=== PATIENT | female | born 1990 | race Two or more races ===

== ENCOUNTER 2020-03-29 12:08 | Emergency (ER) | payer SELFPAY ==
[2020-03-29] MEDS ORDERED: KETOROLAC TROMETHAMINE 60 MG/2 ML SDV IM ONE (12:28)
--- NOTE | 2020-03-29 12:31 | ER Document Report ---
ED General - General Chief Complaint: Leg Pain Stated Complaint: RASH,LOW BACK AND RIGHT LEG PAIN Time Seen by Provider: 03/29/20 12:27 Primary Care Provider: [facility],KATHY [NO LOCAL MD] - Follow up as needed RUSS FAYE JR, DO [ACTIVE PROVISIONAL STAFF] - Follow up as needed TRAVEL OUTSIDE OF THE [place] IN LAST 30 DAYS: No - HPI Notes: 29-year-old female presents to ED for evaluation of right back pain with rash intermittently for the last 3 years. Notes that she had rash evaluated yesterday and was told she has shingles. Patient given valtrex and keflex. States she was working out doing cardio this morning when she injured her low back on the same side. Patient reports she has pain radiating from the low back down into her leg. Denies paresthesias. Notes that she is not experiencing loss of control or bowel or bladder function. Patient denies fever, chills, nausea, vomiting, chest pain, shortness of breath, abdominal pain, gait disturbance, saddle anesthesia, bowel/bladder dysfunction, paresthesias or weakness. - Related Data Allergies/Adverse Reactions: amoxicillin [Amoxicillin] Allergy (Severe, Verified 11/03/15 09:56) Hives,sob Home Medications: Valtrex, Keflex Past Medical History - Social History Smoking Status: Never Smoker Frequency of alcohol use: None Drug Abuse: None Family History: Reviewed & Not Pertinent - Past Medical History Cardiac Medical History: Denies: Hx Pulmonary Embolism Pulmonary Medical History: Reports: Hx Asthma - as child-no current meds Denies: Hx Sleep Apnea, Hx Tuberculosis Musculoskeletal Medical History: Denies Hx Fibromyalgia Traumatic Medical History: Denies: Hx Fractures Infectious Medical History: Denies: Hx HIV Past Surgical History: Reports: Hx Section, Hx Cholecystectomy, Hx Orthopedic Surgery - herniated disc - Immunizations Hx Diphtheria, Pertussis, Tetanus Vaccination: Yes Review of Systems - Review of Systems Notes: Constitutional: Negative for fever. HENT: Negative for sore throat. Eyes: Negative for visual changes. Cardiovascular: Negative for chest pain. Respiratory: Negative for shortness of breath. Gastrointestinal: Negative for abdominal pain, vomiting or diarrhea. Genitourinary: Negative for dysuria. Musculoskeletal: + for back pain. Skin: + for rash. Neurological: Negative for headaches, weakness or numbness. 10 point ROS negative except as marked above and in HPI. Physical Exam - Vital signs Vitals: Temp Pulse Resp BP Pulse Ox 98.4 F 68 20 106/64 98 03/29/20 12:21 03/29/20 12:21 03/29/20 12:21 03/29/20 12:21 03/29/20 12:21 General: No acute distress. Alert and oriented x3. Skin: Intact without any jaundice, pallor, or erythema. Warm and dry. Vesicular rash to dermatomal distribution of the right lumbosacral region. Heart: Regular rate and rhythm. S1,S2. No murmurs, rubs, or gallops. Lungs: Clear to ausculation bilaterally. No wheezes, rhonchi, rales. Equal chest expansion. No retractions. Abdomen: Soft, nontender to palpation, nondistended. Positive bowel sounds in all 4 quadrants. No masses. No CVA tenderness bilaterally. Cervical spine/Thoracic spine/Lumbosacral spine: No tendeness over spinous processes. Right lumbosacral paraspinous muscular tenderness. No edema, erythema, warmth, crepitance, step-off or deformity. Full range of motion with pain. Extremities: Strength 5+ in bilateral upper and lower extremities with pain to right leg. Deep tendon reflexes are 2+ bilaterally. Tactile sensation is intact. Brisk capillary refill. Radial and pedal pulses 2+ bilaterally. Positive straight leg raise to lower extremity bilaterally. Gait steady but painful. No foot drop bilaterally. Neuro: GCS 15. Moving all extremities without discomfort. Psych: Mood and affect appropriate. Course - Re-evaluation Re-evalutation: 03/29/20 20:32 29-year-old female presents to ED for evaluation of back pain and rash. Is present in a dermatomal distribution to the lumbar region. This is concerning for shingles. Patient was seen and evaluated for this yesterday and ready placed on Keflex as well as Valtrex. I told her that this is appropriate treatment and she should continue it. Patient was also evaluated with urine which is notable for infection. I believe that the Keflex will cover this appropriately and have told her to continue taking the Keflex medication. Patient did not have any symptoms concerning for cauda equina syndrome or abscess. Lumbar x-rays were obtained which are notable for degenerative disk with spinal stenosis. Patient may end up having degree of disc herniation in the lumbar spine however I am unable to clearly identify this plan on x-ray. I did discuss this with her. Pain is most likely muscular in nature. Patient will be treated symptomatically with Pain management and NSAIDs. Patient was advised to avoid driving, operating heavy machinery, or drinking alcohol when taking narotic pain medication and/or muscle relaxers. Advised no heavy lifting or twi sting. Patient is advised to alternate ice and heat to the affected area 20 minutes on and 20 minutes off throughout the day. Patient is advised to follow up with their primary doctor. Patient understands that they may need to follow up with an orthopedist and may need an MRI for further evaluation. Patient is advised to return if any worsening of symptoms. Patient understands indications to return to the ER. Patient is agreeable with this plan. - Vital Signs Vital signs: Temp Pulse Resp BP Pulse Ox 98.4 F 70 16 107/66 100 03/29/20 14:59 03/29/20 14:59 03/29/20 14:59 03/29/20 14:59 03/29/20 14:59 - Laboratory Results Laboratory Results Interpreted: 03/29/20 12:38 Urine Blood SMALL H Ur Leukocyte Esterase SMALL H Critical Laboratory Results Reviewed: No Critical Results - Radiology Results Critical Radiology Results Reviewed: No Critical Results Discharge - Discharge Clinical Impression: Spinal stenosis at L4-L5 level Acute cystitis Qualifiers: Hematuria presence: without hematuria Qualified Code(s): N30.00 - Acute cystitis without hematuria Low back pain Qualifiers: Chronicity: acute Back pain laterality: right Sciatica presence: with sciatica Sciatica laterality: sciatica of right side Qualified Code(s): M54.41 - Lumbago with sciatica, right side Herpes zoster Qualifiers: Herpes zoster complications: without complications Qualified Code(s): B02.9 - Zoster without complications Condition: Stable Disposition: HOME, SELF-CARE Instructions: Radiculopathy ([facility]), Viral Syndrome ([facility]) Prescriptions: Hydrocodone/Acetaminophen [[place] 5-325 mg Tablet] 1 tab PO TID #12 tablet Diclofenac Sodium [Voltaren 50 Mg Tablet.Dr] 50 mg PO BID #20 tablet. Forms: Return to Work Referrals: RUSS FAYE JR, DO [ACTIVE PROVISIONAL STAFF] - Follow up as needed [facility] [NO LOCAL MD] - Follow up as needed
[2020-03-29 13:13] LABS: APPEARANCE,URINE SLIGHTLY-CLOUDY; BILIRUBIN,URINE NEGATIVE (NEGATIVE); COLOR,URINE YELLOW; GLUCOSE, URINE NEGATIVE (NEGATIVE); KETONES,URINE NEGATIVE (NEGATIVE); LEUKOCYTE ESTERASE,URINE SMALL (NEGATIVE); NITRITE,URINE NEGATIVE (NEGATIVE); PROTEIN,URINE NEGATIVE (NEGATIVE); URINE SPECIFIC GRAVITY 1.008; UROBILINOGEN,URINE NEGATIVE mg/dL (<2.0)
--- NOTE | 2020-03-29 14:13 | RADIOLOGY REPORT (SQ) ---
EXAM DESCRIPTION: L SPINE WHOLE IMAGES COMPLETED DATE/TIME: 03/29/2020 1:28 pm REASON FOR STUDY: back pain COMPARISON: None. NUMBER OF VIEWS: Five views including obliques. TECHNIQUE: AP, lateral, oblique, and sacral radiographic images acquired of the lumbar spine. LIMITATIONS: None. FINDINGS: MINERALIZATION: Normal. SEGMENTATION: Normal. No transitional anatomy. ALIGNMENT: Normal. VERTEBRAE: Maintained height. No fracture or worrisome bone lesion. DISCS: Mild disc space narrowing particularly at L4-L5. POSTERIOR ELEMENTS: Pedicles and facets are intact. No pars defect or posterior arch defects. HARDWARE: None in the spine. PARASPINAL SOFT TISSUES: Normal. PELVIS: Intact as visualized. No fractures or worrisome bone lesions. SI joints intact. OTHER: No other significant finding. IMPRESSION: MILD DEGENERATIVE DISC DISEASE. NO ACUTE FINDINGS. TECHNICAL DOCUMENTATION: JOB ID: [id number] [employer]- All Rights Reserved Reading location - IP/workstation name: [email or web address]
[2020-03-29 15:02] VITALS: BP 107/66
== END 2020-03-29 15:10 | disposition home or self-care (01) ==
LOC: ER 12:08
DX: N30.00 Acute cystitis without hematuria (principal); M54.41 Lumbago with sciatica, right side; B02.9 Zoster without complications; M48.061 Spinal stenosis, lumbar region without neurogenic claudication; Z90.49 Acquired absence of other specified parts of digestive tract
CPT/HCPCS: 99284; 96372; 81025; 81001; 72110; J1885